=== PATIENT | male | born 1985 | race Caucasian/White ===

== ENCOUNTER 2023-01-21 17:59 | Emergency (ER) | payer OTHER ==
[~2023-01-21] VITALS: Ht 165.1 cm; Wt 59.1 kg
[2023-01-21 19:33] VITALS: TEMP 98.6
[2023-01-21] MEDS ORDERED: KETOROLAC 60MG/2ML VIAL IM STA (21:40)
[2023-01-21] MEDS ORDERED: HYDROCODONE/ACETAMINOPHEN 5/325MG TABLET PO STA (21:40)
[2023-01-21 21:56] VITALS: BP 202/115; PULSE 72; RESP 18
[2023-01-22] MEDS ORDERED: HYDR-4001 MT ×2 (00:59→01:05)
== END 2023-01-22 01:48 | disposition home or self-care (01) ==
LOC: ER 17:59
DX: M54.6 Pain in thoracic spine (principal); M25.561 Pain in right knee; I10 Essential (primary) hypertension; Z98.890 Other specified postprocedural states
CPT/HCPCS: 99285; 71250; 71101; 73030; 73560; 96372; J1885